=== PATIENT | female | born 1935 | race Caucasian/White ===

== ENCOUNTER → 2017-01-09 | Outpatient (CLI) | payer OTHER ==
[~2017-01-09] MED LIST: ACETAMINOPHEN PO; ASPIRIN81 M2 PO; ASPIRIN81 MG PO; ATORVASTATIN CA20 MG PO; DESYREL50 MG PO; FLAGYL PO; GABAPENTIN300 M2 PO; HYDROCHLOROTH12.5 M1; HYDROCHLOROTH12.5 MG PO; IBUPROFEN800 MG PO; LEVAQUIN750 MG PO; LIPITOR20 MG PO; MOTION RELIEF25 MG PO; NEURONTIN100 MG PO; NO MEDICATIONS; OMEPRAZOLE20 M2 PO; ONDANSETRON ODT4 MG PO; PROTONIX PO; TRAMADOL HCL50 M1 PO; TRAMADOL HCL50 M2; TRAZODONE HCL150 MG; TYLENOL #3 PO; TYLENOL PM EX-S1 TA4 PO
--- NOTE | ~2017-01-09 | US37 ---
[facility] A Service of [facility] & [facility] RADIOLOGY TEXT RESULTS PATIENT: JUAN ANTONIO PETERS LOCATION: [facility] : 37 UNIT #: [id number] AGE: [address]: Alicia Wylie APRN SEX: F ORDER DR: [id number] [facility] [address] [place], [place] [address] [id number] O MR#: [id number] #: [id number] NAME: JUAN ANTONIO PEETRS : 1935 SEX: F STUDY DATE/TIME: 01/09/2017 10:33 UNIT: [facility] ROOM: STUDY DESCRIPTION: US Carotid W/Doppler Bilateral Attending Physician: Alicia Wylie A.P.R.N. Referring Physician: Alicia Wylie A.P.R.N. Ordering Physician: Alicia Wylie A.P.R.N. Primary Care Physician: Mallika Portillo M.D. MEDICAL IMAGING REPORT This report is preliminary unless electronic signature is present EXAM Bilateral carotid duplex date of examination 01/09/2017 HISTORY Loss of balance x1 year. FINDINGS There is patent flow seen throughout the right common carotid, internal carotid, and external carotid arteries. At the right carotid bifurcation, there is some heterogeneous, irregular appearing plaque. The right common carotid artery peak velocity is 96 cm/sec. The right internal carotid artery peak velocity over end diastolic velocities are: Proximal 66/11 cm/sec, mid 64/18 cm/sec, distal 58/19 cm/sec. The right external carotid artery peak velocity is 100 cm/sec, vertebral artery 51 cm/sec. The right ICA/CCA ratio is 0.69. There is patent flow seen throughout the left common carotid, internal carotid, and external carotid arteries. There is some mild irregular heterogeneous plaque seen in the left common carotid artery, extending to the left carotid bifurcation, where it appears focal and irregular. The left is also echogenic. There is also some echogenic focal and homogeneous plaque seen in the left external carotid artery. The left common carotid artery peak velocity is 74 cm/sec. The left internal carotid artery peak systolic over end diastolic velocities are: Proximal 43/11 cm/sec, mid 68/20 cm/sec, with distal 93/30 cm/sec. The left external carotid artery peak velocity is 84 cm/sec, and vertebral artery 21 cm/sec. The left ICA/CCA ratio is 1.26. IMPRESSION 1. The right carotid artery has minimal atherosclerosis, which is not hemodynamically significant by duplex criteria (less than 50%). 2. The left carotid artery has minimal atherosclerosis, which is not STS. [facility] A Service of [facility] RADIOLOGY TEXT RESULTS PATIENT: JUAN ANTONIO PETERS LOCATION: [facility] : 37 UNIT #: [id number] AGE: [address]: Alicia Wylie APRN SEX: F ORDER DR: hemodynamically significant by duplex criteria (less than 50%). 3. Vertebral flow is antegrade bilaterally. Dictated by... Juan Carlos Miranda M.D. THIS IS AN ELECTRONICALLY VERIFIED REPORT Juan Carlos Miranda M.D. at 01/10/2017 9:07 AM ODILIA/jacob TD: 01/09/2017 16:44 JOB #: [id number] MEDICAL IMAGING REPORT Page 1 of 1 COPY
--- NOTE | ~2017-01-09 | CT71 ---
[facility] A Service of [facility] & [facility] RADIOLOGY TEXT RESULTS PATIENT: JUAN ANTONIO PETERS LOCATION: [facility] : 37 UNIT #: [id number] AGE: [address]: Alicia Wylie APRN SEX: F ORDER DR: [id number] [facility] [address] [place], [place] [address] [id number] O MR#: [id number] #: [id number] NAME: JUAN ANTONIO PETERS : 1935 SEX: F STUDY DATE/TIME: 01/09/2017 10:24 UNIT: [facility] ROOM: STUDY DESCRIPTION: CT Head Wo Contrast Attending Physician: Alicia Wylie A.P.R.N. Referring Physician: Alicia Wylie A.P.R.N. Ordering Physician: Alicia Wylie A.P.R.N. Primary Care Physician: Mallika Portillo M.D. MEDICAL IMAGING REPORT This report is preliminary unless electronic signature is present EXAM Head CT without contrast HISTORY Loss of balance over the past year. TECHNIQUE/COMPARISON Axial images were obtained without contrast and compared with 10/28/2013. This CT exam was performed with one or more of the following radiation dose reduction techniques: automatic exposure control, adjustment of mA and/or kV according to patient size, and iterative reconstruction. FINDINGS Mild generalized atrophy is seen. There is no evidence of mass lesion, hemorrhage or edema. No midline shift is noted. Extraaxial structures are unremarkable. IMPRESSION Atrophy. No change from previous exam. Dictated by... Alirio Gordon M.D. THIS IS AN ELECTRONICALLY VERIFIED REPORT Alirio Gordon M.D. at 01/09/2017 3:39 PM RLF/to TD: 01/09/2017 15:21 JOB #: [id number] MEDICAL IMAGING REPORT Page 1 of 1 COPY
== END | disposition home or self-care (01) ==
LOC: CCAT 09:54
DX: R26.89 Other abnormalities of gait and mobility (principal); G31.9 Degenerative disease of nervous system, unspecified
CPT/HCPCS: 70450; 93880